=== PATIENT | female | born 1995 | race Caucasian/White ===

== ENCOUNTER 2021-07-27 12:13 | Emergency (ER) | payer SELFPAY ==
--- NOTE | 2021-07-27 13:51 | EDPHYS ---
Physician Documentation [facility] Name: Yessenia Bernal Age: 26 yrs Sex: Female : 1995 Arrival Date: 07/27/2021 Time: 12:17 Bed 8 Private MD: ED Physician Jase Daniels HPI: 07/27 14:18 This 26 yrs old Female presents to ER via Ambulatory with complaints of Abscess. jr8 14:18 Is a 26-year-old female that presented to the emergency room for continuation of right jr8 facial pain and swelling. Patient stated that she had just completed a weeklong worth of amoxicillin for a dental abscess. This past Sunday was started on clindamycin and has been taking that as well has the infection has not gotten any better. Has been seeing her dentist for this. Called in this morning when the swelling appeared to be worse and was sent to the ER for further evaluation. Denies any other symptoms at this time.. 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 - Social history:: Smoking status: Reported history of juuling and/or vaping. ROS: 14:18 Eyes: Negative for injury, pain, redness, and discharge, ENT: Negative for injury, jr8 pain, and discharge, Neck: Negative for injury, pain, and swelling, Cardiovascular: Negative for chest pain, palpitations, and edema, Respiratory: Negative for shortness of breath, cough, wheezing, and pleuritic chest pain, Abdomen/GI: Negative for abdominal pain, nausea, vomiting, diarrhea, and constipation, Back: Negative for injury and pain, MS/Extremity: Negative for injury and deformity, Neuro: Negative for headache, weakness, numbness, tingling, and seizure. 14:18 Skin: Positive for swelling, of the face. Exam: 14:18 Constitutional: This is a well developed, well nourished patient who is awake, alert, jr8 and in no acute distress. 14:18 Eyes: Pupils equal round and reactive to light, extra-ocular motions intact. Lids and lashes normal. Conjunctiva and sclera are non-icteric and not injected. Cornea within normal limits. Periorbital areas with no swelling, redness, or edema. ENT: Nares patent. No nasal discharge, no septal abnormalities noted. Tympanic membranes are normal and external auditory canals are clear. Oropharynx with no redness, swelling, or masses, exudates, or evidence of obstruction, uvula midline. Mucous membranes moist. Mild swelling to the right gums over the right lateral incisor Neck: Trachea midline, no thyromegaly or masses palpated, and no cervical lymphadenopathy. Supple, full range of motion without nuchal rigidity, or vertebral point tenderness. No Meningismus. Cardiovascular: Regular rate and rhythm with a normal S1 and S2. No gallops, murmurs, or rubs. Normal PMI, no JVD. No pulse deficits. Respiratory: Lungs have equal breath sounds bilaterally, clear to auscultation and percussion. No rales, rhonchi or wheezes noted. No increased work of breathing, no retractions or nasal flaring. Skin: Warm, dry with normal turgor. Normal color with no rashes, no lesions, and no evidence of cellulitis. MS/ Extremity: Pulses equal, no cyanosis. Neurovascular intact. Full, normal range of motion. Neuro: Awake and alert, GCS 15, oriented to person, place, time, and situation. Cranial nerves II-XII grossly intact. Motor strength 5/5 in all extremities. Sensory grossly intact. 14:18 Head/face: Noted is swelling, that is mild, of the right cheek, Mild tenderness to swollen area without erythema.. Vital Signs: 12:32 BP 147 / 96; Pulse 88; Resp 18; Pulse Ox 100% ; Weight 74.84 kg; Height 5 ft. 7 in. bronson (170.18 cm); 14:30 BP 147 / 98; Pulse 86; Resp 16 S; Pulse Ox 99% ; jg9 12:32 Body Mass Index 25.84 (74.84 kg, 170.18 cm) bronson MDM: 12:49 Patient medically screened. [facility] 14:22 Data reviewed: vital signs, nurses notes, and as a result, I will discharge patient. jr8 Data interpreted: Pulse oximetry: on room air is 100 %. Interpretation: normal. Counseling: I had a detailed discussion with the patient and/or guardian regarding: the historical points, exam findings, and any diagnostic results supporting the discharge/admit diagnosis, the need for outpatient follow up, a dentist, to return to the emergency department if symptoms worsen or persist or if there are any questions or concerns that arise at home. ED course: Patient that the cellulitis is minimal right now. There is no discernible abscess to drain. We will give her an IM shot of antibiotic to be used but to continue her clindamycin and instructed her to go up to 300 mg 4 times a day for the next 7 days. Patient has already taken 3-day course. Patient will follow up with dentist and come back if she were to worsening point time.. Administered Medications: 14:44 Drug: Ancef (cefazolin) 1 grams Route: IM; Site: right vastus lateralis; jg9 14:44 Follow up: Response: Medication administered at discharge. jg9 Disposition: 18:31 Co-signature as Attending Physician, Jase Daniels MD I agree with the assessment and kdr plan of care. Disposition Summary: 07/27/21 13:50 Discharge Ordered Location: Home [facility] Problem: new jr8 Symptoms: are unchanged jr8 Condition: Stable jr8 Diagnosis - Cellulitis of face jr8 Followup: jr8 - With: Private Physician - When: 2 - 3 days - Reason: Recheck today's complaints, Continuance of care, Re-evaluation by your physician Discharge Instructions: - Discharge Summary Sheet jr8 - Cellulitis, Adult jr8 Forms: - Medication Reconciliation Form jr8 - Thank You Letter jr8 - Antibiotic Education jr8 - Prescription Opioid Use jr8 Signatures: Jase Daniels MD MD kdr Roszak, Josh, PA PA jr8 Grecia Kline jg9 Clementine Quintero
--- NOTE | 2021-07-27 13:51 | ER ---
Nurse's Notes [facility] Name: Yessenia Bernal Age: 26 yrs Sex: Female : 1995 Arrival Date: 07/27/2021 Time: 12:17 Bed 8 Private MD: Diagnosis: Cellulitis of face Presentation: 07/27 12:32 Chief complaint: Patient states: pt presented to Ed reporting right side mouth abscess. bronson pt was prescribed ABX by dentist and has been taking x4 days. pr reports that ABX is not working and face is more swollen. Coronavirus screen: Vaccine status: Patient reports receiving the 2nd dose of the covid vaccine. Ebola Screen: Patient denies travel to an Ebola-affected area in the 21 days before illness onset. No symptoms or risks identified at this time. Initial Sepsis Screen: Does the patient meet any 2 criteria? No. Patient's initial sepsis screen is negative. Does the patient have a suspected source of infection? No. Patient's initial sepsis screen is negative. Risk Assessment: Do you want to hurt yourself or someone else? Patient reports no desire to harm self or others. Onset of symptoms was July 20, 2021. 12:32 Method Of Arrival: Ambulatory bronson 12:32 Acuity: ANDREW 3 bronson Triage Assessment: 12:35 General: Appears in no apparent distress. Pain: Complains of pain in right cheek and bronson right jaw. EENT: Reports pain when swallowing Pain is 10 out of 10 on a pain scale. 12:37 General: Behavior is calm, cooperative. 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 - Social history:: Smoking status: Reported history of juuling and/or vaping. Screenin:36 Abuse screen: Denies threats or abuse. Denies injuries from another. Nutritional bronson screening: No deficits noted. Tuberculosis screening: No symptoms or risk factors identified. Fall Risk None identified. Assessment: 14:46 Reassessment: Patient appears in no apparent distress at this time. No changes from jg9 previously documented assessment. Patient and/or family updated on plan of care and expected duration. Pain level reassessed. Derm: r facial edema. Vital Signs: 12:32 BP 147 / 96; Pulse 88; Resp 18; Pulse Ox 100% ; Weight 74.84 kg; Height 5 ft. 7 in. bronson (170.18 cm); 14:30 BP 147 / 98; Pulse 86; Resp 16 S; Pulse Ox 99% ; jg9 12:32 Body Mass Index 25.84 (74.84 kg, 170.18 cm) ED Course: 12:17 Patient arrived in ED. ds1 12:30 Juan J May PA is PHCP. jr8 12:30 Jase Daniels MD is Attending Physician. jr8 12:34 Patient has correct armband on for positive identification. Bed in low position. Call mh5 light in reach. Side rails up X 1. Pulse ox on. NIBP on. 12:35 Triage completed. bronson 12:35 Arm band placed on. bronson 12:36 No provider procedures requiring assistance completed. bronson 14:34 Grecia Kline is Primary Nurse. jg9 14:46 Patient did not have IV access during this emergency room visit. jg9 Administered Medications: 14:44 Drug: Ancef (cefazolin) 1 grams Route: IM; Site: right vastus lateralis; jg9 14:44 Follow up: Response: Medication administered at discharge. jg9 Outcome: 13:50 Discharge ordered by . jr8 14:46 Discharged to home ambulatory. jg9 14:46 Condition: stable 14:46 Discharge instructions given to patient, Instructed on discharge instructions, follow up and referral plans. Demonstrated understanding of instructions, follow-up care, medications. 14:47 Patient left the ED. jg9 Signatures: Adriana Santos ds1 Juan J May PA PA jr8 Martinez, Maria Grecia Chin jg9 Tsering-StagerClementine Corrections: (The following items were deleted from the chart) 12:35 12:33 Patient has correct armband on for positive identification. Bed in low position. mh5 Call light in reach. Side rails up X 1. Adult w/ patient. mh5
[2021-07-27] MEDS ORDERED: CEFAZOLIN SODIUM 1 GM/VIAL ONE (14:36)
[2021-07-27 14:52] VITALS: BP 147/98; O2SAT 99
== END 2021-07-27 14:47 | disposition home or self-care (01) ==
LOC: ER 12:13
DX: L03.211 Cellulitis of face (principal)
CPT/HCPCS: 96372; 99283; J0690

== ENCOUNTER 2023-03-08 10:33 | Emergency (ER) | payer SELFPAY ==
[2023-03-08 11:51] LABS: Urine Bacteria None Seen /HPF (<20); Urine Bilirubin NEGATIVE (Negative); Urine Blood Negative (Negative); Urine Clarity Extremely Turbid (Clear); Urine Color Light-Yellow (Yellow); Urine Glucose NEGATIVE (Negative); Urine Protein NEGATIVE (Negative); Urine RBC <5 /HPF (None Seen); Urine Urobilinogen Normal (Normal)
--- NOTE | 2023-03-08 11:57 | RAD REPORT ---
EXAM DESCRIPTION: US - Pelvis Complete - 03/08/2023 11:46 am CLINICAL HISTORY: Pelvic pain/right lower quadrant COMPARISON: None FINDINGS: The uterus measures 8 x 3 x 5 centimeters. Endometrial stripe 1.7 centimeters. A fibroid i s not seen. Right ovary normal in size and echotexture. It contains blood flow. 2.2 centimeters cyst. No follow-up needed Left ovary is normal in size and echotexture. It contains blood flow. Small amount of free fluid may physiologic. The right left adnexal unremarkable IMPRESSION: Mild prominence of the endometrium probably physiologic. As a precaution it is recommend ed that the patient have a followup pelvic ultrasound in a couple months for re-evaluation 2.2 centimeter right ovarian cyst
[2023-03-08 12:06] LABS: Absolute Lymphocytes (CBC) 2.4 K/uL (0.7-4.9); Hematocrit 42.1 % (36.0-45.0); Lymphocytes % 33.4 % (15.3-44.8); MCV 98.3 fL (80-100); MPV 7.7 fL (7.6-11.3); RBC Red Blood Cell Count 4.28 M/uL (3.86-4.86)
--- NOTE | 2023-03-08 12:17 | RAD REPORT ---
EXAM DESCRIPTION: CT - Abdomen Pelvis W Contrast - 03/08/2023 12:06 pm CLINICAL HISTORY: Abdominal pain COMPARISON: none. TECHNIQUE: Computed axial tomography of the abdomen pelvis was obtained. 100 cc Isovue-300 was admin istered intravenously. Oral contrast was not requested which limits evaluation of bowel and appendix All CT scans are performed using dose optimization technique as appropriate and may include automated exposure control or mA/KV adjustment according to patient size. FINDINGS: The liver, spleen, pancreas, adrenal and kidneys appear unremarkable. There is no evidence of diverticulitis. 2.3 centimeter right ovarian cyst with small amount of free fluid Normal appendix IMPRESSION: 2.3 centimeter right ovarian cyst with small amount of free fluid
[2023-03-08 12:23] LABS: Bilirubin Total 0.6 mg/dL (0.2-1.0); Potassium 3.9 mEq/L (3.5-5.1); Protein, Total 7.6 g/dL (6.4-8.2)
--- NOTE | 2023-03-08 12:37 | EDPHYS ---
Physician Documentation [facility] Name: Yessenia Bernal Age: 27 yrs Sex: Female : 1995 Arrival Date: 03/08/2023 Time: 10:33 Bed 19 Private MD: ED Physician Brenden Dinh HPI: 03/08 10:56 This 27 yrs old Female presents to ER via Ambulatory with complaints of Abd pain. rn 10:56 The patient presents with abdominal pain right lower quadrant. Onset: The rn symptoms/episode began/occurred 2 day(s) ago. The symptoms do not radiate. Associated signs and symptoms: Pertinent positives: dysuria, Pertinent negatives: blood in stools, fever, shortness of breath, vomiting. The symptoms are described as crampy, sharp. Modifying factors: The symptoms are alleviated by nothing, the symptoms are aggravated by movement, touching the area. Severity of pain: At its worst the pain was moderate in the emergency department the pain is unchanged. The patient has not experienced similar symptoms in the past. The patient has not recently seen a physician. Pt reports RLQ abd pain and pressure, began 2 days ago, no fever, no vomiting, + dysuria. LMP 2 weeks ago. No discharge. NO hx of kidney stones or cysts. No trauma. . 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 - Social history:: Smoking status: Patient denies any tobacco usage or history of. - Family history:: not pertinent. - Hospitalizations: : No recent hospitalization is reported. ROS: 10:56 Constitutional: Negative for fever, chills, and weight loss, Cardiovascular: Negative rn for chest pain, palpitations, and edema, Respiratory: Negative for shortness of breath, cough, wheezing, and pleuritic chest pain, Abdomen/GI: + abd pain Back: Negative for injury and pain, : + dysuria MS/Extremity: Negative for injury and deformity, Skin: Negative for injury, rash, and discoloration, Neuro: Negative for headache, weakness, numbness, tingling, and seizure. Exam: 10:56 Constitutional: This is a well developed, well nourished patient who is awake, alert, rn and in no acute distress. Cardiovascular: Regular rate and rhythm. No pulse deficits. Respiratory: No increased work of breathing, no retractions or nasal flaring. Abdomen/GI: Soft, + mild suprapubic and RLQ tenderness, no rebound Skin: Warm, dry MS/ Extremity: Pulses equal, no cyanosis. Neuro: Awake and alert, GCS 15 Vital Signs: 10:48 BP 154 / 98; Pulse 79; Resp 16; Temp 98.6; Pulse Ox 100% on R/A; Weight 68.04 kg; ll1 Height 5 ft. 6 in. ; Pain 5/10; 12:45 BP 120 / 90; Pulse 68; Resp 16; Pulse Ox 100% ; ll1 10:48 Body Mass Index 24.21 (68.04 kg, 167.64 cm) ll1 10:48 Pain Scale: Adult ll1 MDM: 10:38 Patient medically screened. rn 12:34 Differential diagnosis: appendicitis, Ectopic , Endometriosis, non-specific rn abd pain, Ovarian Torsion, Ureterolithiasis, urinary tract infection. Data reviewed: vital signs, nurses notes, lab test result(s), radiologic studies, CT scan, ultrasound, and as a result, I will discharge patient. Counseling: I had a detailed discussion with the patient and/or guardian regarding: the historical points, exam findings, and any diagnostic results supporting the discharge/admit diagnosis, lab results, radiology results, the need for outpatient follow up, to return to the emergency department if symptoms worsen or persist or if there are any questions or concerns that arise at home. Response to treatment: the patient's symptoms have mildly improved after treatment, and as a result, I will discharge patient. Special discussion: Based on the patient's Hx, exam, and Dx evaluation, there is no indication for emergent surgery or inpatient Tx. It is understood by the patient/guardian that if the Sx's persist or worsen they need to return immediately for re-evaluation. I discussed with the patient/guardian in detail that at this point there is no indication for admission to the hospital. It is understood, however, that if the symptoms persist or worsen the patient needs to return immediately for re-evaluation. Based on the history and exam findings, there is no indication for further emergent testing or inpatient evaluation. I discussed with the patient/guardian the need to see the OB Gyne specialist for further evaluation of the symptoms. ED course: Small ruptured ovarian cyst, no torsion, no appendicitis, will dc home with return precautions and anti inflammatories. . 03/08 10:50 Order name: CBC with Diff; Complete Time: 12:21 rn 03/08 10:50 Order name: CMP; Complete Time: 12:29 rn 03/08 10:50 Order name: Test, Urine; Complete Time: 12:21 rn 03/08 10:50 Order name: Urinalysis w/ reflexes; Complete Time: 12:21 rn 03/08 10:50 Order name: CT Abd/Pelvis - IV Contrast Only; Complete Time: 12:21 rn 03/08 10:50 Order name: US Pelvis Complete; Complete Time: 12:21 rn 03/08 10:50 Order name: IV Saline Lock; Complete Time: 10:51 rn 03/08 10:50 Order name: Labs collected and sent; Complete Time: 10:51 rn Administered Medications: No medications were administered Disposition Summary: 03/08/23 12:36 Discharge Ordered Location: Home rn Problem: new rn Symptoms: have improved rn Condition: Stable rn Diagnosis - Other ovarian cysts rn Followup: rn - With: Private Physician - When: As needed - Reason: Recheck today's complaints, Re-evaluation by your physician Discharge Instructions: - Discharge Summary Sheet rn - Ovarian Cyst rn Forms: - Medication Reconciliation Form rn - Thank You Letter rn - Antibiotic health services rn - Prescription Opioid Use rn - Patient Portal Instructions rn Prescriptions: - Diclofenac Sodium 75 mg Oral Tablet Sustained Release - take 1 tablet by ORAL route 2 times per day; 30 tablet; Refills: 0, Product rn Selection Permitted Signatures: Dispatcher [employer] EDMS Brenden Dinh MD MD rn Lewis, Lynsay RN RN ll1 Corrections: (The following items were deleted from the chart) 10:58 10:56 Constitutional: Negative for fever, chills, and weight loss, Cardiovascular: rn Negative for chest pain, palpitations, and edema, Respiratory: Negative for shortness of breath, cough, wheezing, and pleuritic chest pain, Abdomen/GI: + abd pain Back: Negative for injury and pain, MS/Extremity: Negative for injury and deformity, Skin: Negative for injury, rash, and discoloration, Neuro: Negative for headache, weakness, numbness, tingling, and seizure, rn
--- NOTE | 2023-03-08 12:37 | ER ---
Nurse's Notes [facility] Name: Yessenia Bernal Age: 27 yrs Sex: Female : 1995 Arrival Date: 03/08/2023 Time: 10:33 Bed 19 Private MD: Diagnosis: Other ovarian cysts Presentation: 03/08 10:48 Chief complaint: Patient states: Pelvic pain, worse on R side for 2 days. Reports a ll1 pressure feeling to bladder with oliguria. Coronavirus screen: Client denies travel out of the [place] in the last 14 days. At this time, the client does not indicate any symptoms associated with coronavirus-19. Ebola Screen: Patient denies travel to an Ebola-affected area in the 21 days before illness onset. Initial Sepsis Screen: Does the patient meet any 2 criteria? No. Patient's initial sepsis screen is negative. Does the patient have a suspected source of infection? Yes: Dysuria/Frequency/Urgency/UTI. Risk Assessment: Do you want to hurt yourself or someone else? Patient reports no desire to harm self or others. Onset of symptoms was March 06, 2023. 10:48 Method Of Arrival: Ambulatory 1 10:48 Acuity: ANDREW 3 ll1 Triage Assessment: 10:50 General: Appears uncomfortable, ill, Behavior is calm, cooperative, appropriate for 1 age. Pain: Complains of pain in pelvis Quality of pain is described as aching. GI: Reports lower abdominal pain, cramping. : Reports pain bladder, oliguria. 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 - Social history:: Smoking status: Patient denies any tobacco usage or history of. - Family history:: not pertinent. - Hospitalizations: : No recent hospitalization is reported. Screenin:08 [facility] ED Fall Risk Assessment (Adult) History of falling in the last 3 months, ss including since admission No falls in past 3 months (0 pts). Abuse screen: Denies threats or abuse. Denies injuries from another. Nutritional screening: No deficits noted. Tuberculosis screening: Never had TB. Assessment: 10:58 Reassessment: No changes from previously documented assessment. to US via wheelchair. ll1 11:58 Reassessment: No changes from previously documented assessment. Patient and/or family ss updated on plan of care and expected duration. Pain level reassessed. Patient is alert, oriented x 3, equal unlabored respirations, skin warm/dry/pink. 12:08 Reassessment: Pt to CT now. Labs sent. Awaiting results. ss Vital Signs: 10:48 BP 154 / 98; Pulse 79; Resp 16; Temp 98.6; Pulse Ox 100% on R/A; Weight 68.04 kg; ll1 Height 5 ft. 6 in. ; Pain 5/10; 12:45 BP 120 / 90; Pulse 68; Resp 16; Pulse Ox 100% ; ll1 10:48 Body Mass Index 24.21 (68.04 kg, 167.64 cm) ll1 10:48 Pain Scale: Adult ll1 ED Course: 10:36 Patient arrived in ED. mr 10:38 Brenden Dinh MD is Attending Physician. rn 10:41 Arm band placed on Patient placed in an exam room, on a stretcher. ll1 10:48 Steven Daniel RN is Primary Nurse. ll1 10:50 Triage completed. ll1 11:00 Missed attempt(s): 24 gauge in left forearm. Bleeding controlled, band aid applied, ll1 catheter tip intact. 11:48 US Pelvis Complete In Process Unspecified. EDMS 12:03 Inserted saline lock: 22 gauge in right wrist, using aseptic technique. ,using aseptic ss technique. US GUIDED Blood collected. 12:08 CT Abd/Pelvis - IV Contrast Only In Process Unspecified. EDMS 12:45 No provider procedures requiring assistance completed. Patient did not have IV access ll1 during this emergency room visit. 12:54 Patient has correct armband on for positive identification. Bed in low position. Call ll1 light in reach. Provided Education on: n/a. Administered Medications: No medications were administered Medication: 12:08 VIS not applicable for this client. ss Outcome: 12:36 Discharge ordered by . rn 12:45 Patient left the ED. ll1 12:45 Discharged to home ambulatory. ll1 12:45 Condition: stable 12:45 Discharge instructions given to patient, Instructed on discharge instructions, follow up and referral plans. no driving heavy equipment, medication usage, Demonstrated understanding of instructions, follow-up care, medications, Prescriptions given X 1. Signatures: Dispatcher [employer] Kacy Flower Roman, MD MD rn Blanchard, Shelby, RN RN ss Lewis, Lynsay, RN RN ll1
[2023-03-08 12:49] VITALS: BP 154/98; TEMP 98.6; O2SAT 100
== END 2023-03-08 12:45 | disposition home or self-care (01) ==
LOC: ER 10:33
DX: N83.291 Other ovarian cyst, right side (principal)
CPT/HCPCS: 36415; 74177; 76856; 80053; 81001; 81025; 85025; 99283; Q9967

== ENCOUNTER 2024-09-09 06:44 | Emergency (ER) | payer BC, SELFPAY ==
[2024-09-09 07:53] LABS: Absolute Eosinophils 0.1 K/uL (0-0.5); Absolute Monocytes 0.7 K/uL (0.1-1.3); Basophils % 0.5 % (0-1.3); Eosinophils % 1.7 % (0-4.4); Hematocrit 47.2 % (36.0-45.0); Hemoglobin 15.9 g/dL (12.0-15.0); Lymphocytes % 25.1 % (15.3-44.8); MCH 33.4 pg (27.0-35.0); MCHC 33.6 g/dL (32.0-36.0); MCV 99.2 fL (80-100); MPV 7.4 fL (7.6-11.3); Monocytes % 8.9 % (3.3-12.3); Neutrophils % 63.8 % (41.7-73.7); Nucleated Red Blood Cells % 0.2 % (0-0); Platelets 354 thou/uL (152-406); RBC Red Blood Cell Count 4.75 M/uL (3.86-4.86); Red Cell Distribution Width 12.1 % (12.1-15.2)
[2024-09-09 08:14] LABS: Anion Gap 9.3 mEq/L (5.0-15.0); Potassium 4.3 mEq/L (3.5-5.1)
--- NOTE | 2024-09-09 08:58 | RAD REPORT ---
EXAMINATION: US Pelvis Complete, US transvaginal OB COMPARISON: None. HISTORY: [facility] MAIN bleeding Bed Name: 20 TECHNIQUE: Real-time ultrasound was performed through the pelvis. Transvaginal and transabdominal sca ns were performed to better visualize the intrauterine contents and adnexa. FINDINGS: Uterus is retroverted, measures 9.9 cm in length. A single small cystic spaces present in the right cornual extent of the endometrial stripe measuring 3.1 mm, may represent an early gestational sac. No pole or cardiac pulsations identified. Endometrium is heterogeneous and somewhat thickened centrally. Both ovaries are visualized, with a dominant right ovarian 1.5 cm follicle. There is no free fluid in the cul-de-sac. Measurements and Calculations: Gestational sac mean diameter 3.1 mm, consistent with a sonographic age of 5 weeks, 0 days. The patie nt's LMP date is not stated. IMPRESSION: Possible early gestational sac along the right cornual extent of the endometrial stripe. Mean diamete r correlates to gestational age 5 weeks, 0 days. No pole or cardiac pulsations identified. Correlation with serial beta hCG levels, and consideration of repeat ultrasound in 5-7 days are recom mended to establish viability.
--- NOTE | 2024-09-09 09:00 | RAD REPORT ---
EXAMINATION: US Pelvis Complete, US transvaginal OB COMPARISON: None. HISTORY: [facility] MAIN bleeding Bed Name: 20 TECHNIQUE: Real-time ultrasound was performed through the pelvis. Transvaginal and transabdominal sca ns were performed to better visualize the intrauterine contents and adnexa. FINDINGS: Uterus is retroverted, measures 9.9 cm in length. A single small cystic spaces present in the right cornual extent of the endometrial stripe measuring 3.1 mm, may represent an early gestational sac. No pole or cardiac pulsations identified. Endometrium is heterogeneous and somewhat thickened centrally. Both ovaries are visualized, with a dominant right ovarian 1.5 cm follicle. There is no free fluid in the cul-de-sac. Measurements and Calculations: Gestational sac mean diameter 3.1 mm, consistent with a sonographic age of 5 weeks, 0 days. The patie nt's LMP date is not stated. IMPRESSION: Possible early gestational sac along the right cornual extent of the endometrial stripe. Mean diamete r correlates to gestational age 5 weeks, 0 days. No pole or cardiac pulsations identified. Correlation with serial beta hCG levels, and consideration of repeat ultrasound in 5-7 days are recom mended to establish viability.
--- NOTE | 2024-09-09 09:37 | EDPHYS ---
Physician Documentation [facility] Name: Yessenia Gallagher Age: 29 yrs Sex: Female : 1995 Arrival Date: 09/09/2024 Time: 06:44 Bed 20 Private MD: ED Physician Mich Vieyra HPI: 09/09 07:44 This 29 yrs old Female presents to ER via Ambulatory with complaints of Vaginal rt Bleeding, Pelvic Pain, EST 6WKS GESTATION. 07:44 Patient is a G4, P0 currently at about 6 weeks gestation presents to the ED with rt vaginal bleeding. Patient started with spotting yesterday as well as lower abdominal cramping, worse on the right. States that the bleeding worsened today but is subsequently resolved. Denies other acute complaints at this time, symptoms are moderate in severity, no other aggravating or alleviating factors.. Historical: - Allergies: 07:13 No Known Allergies; ha1 - PSHx: 07:13 Tonsillectomy; ha1 - Immunization history:: Adult Immunizations up to date. - Infectious Disease History:: Denies. - Social history:: Smoking status: Patient denies any tobacco usage or history of. ROS: 07:44 Positive for vaginal bleeding, Negative for urinary symptoms, rt 07:44 Constitutional: Negative for fever, chills, and weight loss, Cardiovascular: Negative for chest pain, palpitations, and edema, Respiratory: Negative for shortness of breath, cough, wheezing, and pleuritic chest pain, Abdomen/GI: Negative for abdominal pain, nausea, vomiting, diarrhea, and constipation, Skin: Negative for injury, rash, and discoloration, Neuro: Negative for headache, weakness, numbness, tingling, and seizure, Exam: 07:44 Constitutional: This is a well developed, well nourished patient who is awake, alert, rt and in no acute distress. Head/Face: Normocephalic, atraumatic. Chest/axilla: Normal chest wall appearance and motion. Nontender with no deformity. No lesions are appreciated. Cardiovascular: Regular rate and rhythm with a normal S1 and S2. No gallops, murmurs, or rubs. Normal PMI, no JVD. No pulse deficits. Respiratory: Lungs have equal breath sounds bilaterally, clear to auscultation and percussion. No rales, rhonchi or wheezes noted. No increased work of breathing, no retractions or nasal flaring. Abdomen/GI: Soft, non-tender, with normal bowel sounds. No distension or tympany. No guarding or rebound. No evidence of tenderness throughout. Skin: Warm, dry with normal turgor. Normal color with no rashes, no lesions, and no evidence of cellulitis. MS/ Extremity: Pulses equal, no cyanosis. Neurovascular intact. Full, normal range of motion. Vital Signs: 06:51 BP 144 / 93; Pulse 103; Resp 20 S; Temp 98.2(O); Pulse Ox 100% on R/A; Weight 77.11 kg; ha1 Height 5 ft. 7 in. ; Pain 8/10; 09:48 BP 138 / 86; Pulse 92; Resp 16; Pulse Ox 99% ; ko1 06:51 Body Mass Index 26.63 (77.11 kg, 170.18 cm) ha1 06:51 Pain Scale: Adult ha1 MDM: 06:59 Medical Screening Exam initiated rt 10:16 Differential diagnosis: Ectopic , threatened , inevitable , rt missed . Data reviewed: vital signs, nurses notes, lab test result(s), radiologic studies. Counseling: I had a detailed discussion with the patient and/or guardian regarding the historical points, exam findings, and any diagnostic results supporting the discharge/admit diagnosis, lab results, radiology results, the need for outpatient follow up, Discussed radiology recommendations for 5 to 7-day repeat hCG and ultrasound.. 09/09 07:14 Order name: Abo/rh Typing; Complete Time: 08:48 rt 09/09 07:14 Order name: Basic Metabolic Panel; Complete Time: 08:48 rt 09/09 07:14 Order name: CBC with Diff; Complete Time: 08:48 rt 09/09 07:14 Order name: Quantitative Hcg; Complete Time: 08:48 rt 09/09 07:55 Order name: Pelvis Complete; Complete Time: 09:28 EDMS 09/09 07:56 Order name: Transvaginal OB; Complete Time: 09:28 EDMS 09/09 07:14 Order name: IV Saline Lock; Complete Time: 07:56 rt 09/09 07:14 Order name: Labs collected and sent; Complete Time: 07:56 rt 09/09 07:14 Order name: NPO; Complete Time: 07:56 rt Administered Medications: No medications were administered Disposition Summary: 09/09/24 09:36 Discharge Ordered Notes: Location: Home rt Problem: new rt Symptoms: are unchanged rt Condition: Stable rt Diagnosis - Threatened rt Followup: rt - With: Private Physician - When: 5 - 6 days - Reason: Re-evaluation by your physician Discharge Instructions: - Discharge Summary Sheet rt - Threatened Miscarriage rt - Vaginal Bleeding During , First Trimester rt Forms: - Medication Reconciliation Form rt - Antibiotic Education rt - Prescription Opioid Use rt - Patient Portal Instructions rt - Leadership Thank You Letter rt Signatures: Dispatcher [employer] Jessica Wilcox RN RN ha1 Mich Vieyra MD MD rt Corrections: (The following items were deleted from the chart) 07:55 07:15 Transvaginal Ob+US.RAD.BRZ ordered. EDMS EDMS
--- NOTE | 2024-09-09 09:37 | ER ---
Nurse's Notes [facility] Name: Yessenia Gallagher Age: 29 yrs Sex: Female : 1995 Arrival Date: 09/09/2024 Time: 06:44 Bed 20 Private MD: Diagnosis: Threatened Presentation: 09/09 06:51 Chief complaint: Patient states: pelvic cramping, vaginal bleeding. six weeks . ha1 06:51 Coronavirus screen: Client denies travel out of the [place] in the last 14 days. Ebola ha1 Screen: No symptoms or risks identified at this time. Initial Sepsis Screen: Does the patient meet any 2 criteria? No. Patient's initial sepsis screen is negative. Does the patient have a suspected source of infection? No. Patient's initial sepsis screen is negative. Risk Assessment: Do you want to hurt yourself or someone else? Patient reports no desire to harm self or others. Onset of symptoms was September 09, 2024. 06:51 Method Of Arrival: Ambulatory ha1 06:51 Acuity: ANDREW 3 ha1 Triage Assessment: 06:50 General: Appears uncomfortable, Behavior is cooperative. Pain: Complains of pain in ha1 pelvis Quality of pain is described as crampy. Neuro: Level of Consciousness is awake, alert, obeys commands, Oriented to person, place, time, situation. Cardiovascular: Patient's skin is warm and dry. Respiratory: Airway is patent Respiratory effort is even, unlabored, Respiratory pattern is regular, symmetrical. Historical: - Allergies: 07:13 No Known Allergies; ha1 - PSHx: 07:13 Tonsillectomy; ha1 - Immunization history:: Adult Immunizations up to date. - Infectious Disease History:: Denies. - Social history:: Smoking status: Patient denies any tobacco usage or history of. Screenin:40 [facility] ED Fall Risk Assessment (Adult) History of falling in the last 3 months, ko1 including since admission No falls in past 3 months (0 pts) Confusion or Disorientation No (0 pts) Intoxicated or Sedated No (0 pts) Impaired Gait No (0 pts) Mobility Assist Device Used No (0 pt) Altered Elimination No (0 pt) Score/Fall Risk Level 0 - 2 = Low Risk Oriented to surroundings, Maintained a safe environment, Educated pt \T\ family on fall prevention, incl call for assistance when getting out of bed, Assessed \T\ reinforced patient's understanding of fall precautions, Provided non-skid footwear, Hourly rounding (assess needs \T\ fall precautionary measures) done. Abuse screen: Denies threats or abuse. Denies injuries from another. Nutritional screening: No deficits noted. Tuberculosis screening: No symptoms or risk factors identified. Assessment: 07:40 General: Appears in no apparent distress. Behavior is calm, cooperative, appropriate ko1 for age. Pain: Complains of pain in pelvis. Neuro: No deficits noted. Cardiovascular: No deficits noted. Respiratory: No deficits noted. GI: No deficits noted. No signs and/or symptoms were reported involving the gastrointestinal system. : Reports vaginal bleeding that is spotty. : No deficits noted. : Denies burning with urination. EENT: No deficits noted. No signs and/or symptoms were reported regarding the EENT system. Derm: No deficits noted. No signs and/or symptoms reported regarding the dermatologic system. Musculoskeletal: No deficits noted. No signs and/or symptoms reported regarding the musculoskeletal system. Vital Signs: 06:51 BP 144 / 93; Pulse 103; Resp 20 S; Temp 98.2(O); Pulse Ox 100% on R/A; Weight 77.11 kg; ha1 Height 5 ft. 7 in. ; Pain 8/10; 09:48 BP 138 / 86; Pulse 92; Resp 16; Pulse Ox 99% ; ko1 06:51 Body Mass Index 26.63 (77.11 kg, 170.18 cm) ha1 06:51 Pain Scale: Adult ha ED Course: 06:45 Patient arrived in ED. [id number] 06:59 Mich Vieyra MD is Attending Physician. rt 07:05 Rhiannon Brothers, LALO is Primary Nurse. db 07:13 Triage completed. ha1 07:40 Patient has correct armband on for positive identification. Bed in low position. Call ko1 light in reach. Side rails up X 1. Provided Education on: labs. Pulse ox on. NIBP on. Door closed. Noise minimized. Lights dimmed. Warm blanket given. Pillow given. 07:40 No provider procedures requiring assistance completed. Initial lab(s) drawn, by ED ko1 staff, sent to lab. Inserted saline lock: 24 gauge in left antecubital area, using aseptic technique. Blood collected. Flushed with 10 mL NS. 08:31 Pelvis Complete In Process Unspecified. EDMS 08:31 Transvaginal OB In Process Unspecified. EDMS 09:48 IV discontinued, intact, bleeding controlled, No redness/swelling at site. Pressure ko1 dressing applied. Administered Medications: No medications were administered Medication: 07:40 VIS not applicable for this client. ko1 Outcome: 09:36 Discharge ordered by . rt 09:48 Discharged to home ambulatory, with family, ko1 09:48 Condition: stable 09:48 Discharge instructions given to patient, family, Instructed on discharge instructions, follow up and referral plans. Demonstrated understanding of instructions, follow-up care, 09:53 Patient left the ED. ko1 Signatures: Dispatcher [employer] EDMS Grecia Daniels [email or web address] Jessica Boone RN RN ha1 Jessica Horta RN RN ko1 Rhiannon Brothers RN RN Mich Michelle MD MD rt
[2024-09-09 09:59] VITALS: TEMP 98.2
[2024-09-09 10:00] VITALS: BP 138/86; O2SAT 99
== END 2024-09-09 09:53 | disposition home or self-care (01) ==
LOC: ER 06:44
DX: O20.0 Threatened abortion (principal)
CPT/HCPCS: 36415; 76817; 76856; 80048; 84702; 85025; 86900; 86901